=== PATIENT | female | born 1995 | race American Indian/Alaskan Native ===

== ENCOUNTER 2017-11-29 14:26 | Emergency (ER) | payer OTHER ==
[2017-11-29 15:13] VITALS: BP 119/76
== END 2017-11-29 18:12 | disposition home or self-care (01) ==
LOC: ED 14:26
DX: S61.419A Laceration without foreign body of unspecified hand, initial encounter (principal); Z53.21 Procedure and treatment not carried out due to patient leaving prior to being seen by health care provider; X58.XXXA Exposure to other specified factors, initial encounter; Y93.89 Activity, other specified; Y92.89 Other specified places as the place of occurrence of the external cause; Y99.8 Other external cause status